=== PATIENT | female | born 1990 | race Caucasian/White ===

== ENCOUNTER 2016-11-23 07:22 | Emergency (ER) | payer OTHER ==
[2016-11-23 07:47] VITALS: BP 114/63
--- NOTE | 2016-11-23 08:49 | EDM.PDOC ---
[id number] Complaint: RIGHT FOOT INJURY Time Seen by Provider: 11/23/16 08:00 Source of Information: Reports: Patient History Limitations: Reports: No Limitations - History of Present Illness INITIAL COMMENTS - FREE TEXT/NARRATIVE: 26-year-old female buckled her right foot under her last evening and sustained a foot injury. This morning she has swelling and pain over the lateral aspect of the right foot. No other complaints. Onset: Other (Last evening) Location: Reports: Lower Extremity, Right Severity: Mild Associated Symptoms: Reports: No Other Symptoms right foot Pain Score (Numeric/FACES): 6 - Related Data Allergies Allergy/AdvReac Type Severity Reaction Status Date / Time No Known Allergies Allergy Verified 11/23/16 07:50 Home Meds: Home Meds NK [No Known Home Meds] 11/23/16 [History] Past Medical History - Past Health History Medical/Surgical History: Denies Medical/Surgical History Social & Family History - Tobacco Use Smoking Status *Q: Never Smoker Second Hand Smoke Exposure: No - Recreational Drug Use Recreational Drug Use: No Review of Systems - Review of Systems Review Of Systems: See Below Constitutional: Denies: Fever Respiratory: Denies: Shortness of Breath GI/Abdominal: Denies: Nausea, Vomiting Musculoskeletal: Denies: Neck Pain Skin: Denies: Bruising Neurological: Denies: Paresthesia ED EXAM, GENERAL - Physical Exam Exam: See Below Exam Limited By: No Limitations General Appearance: Alert, No Apparent Distress Respiratory/Chest: No Respiratory Distress Extremities: Other (Some swelling over the top and lateral aspect of the right foot, very tender to palpation but no crepitus or deformity) Course - Vital Signs Last Recorded V/S: Last Vital Signs Temp 95.4 F 11/23/16 07:45 Pulse 86 11/23/16 07:45 Resp 16 11/23/16 07:45 BP 114/63 11/23/16 07:45 Pulse Ox 98 11/23/16 07:45 - Orders/Labs/Meds Orders: Active Orders 24 hr Category Date Time Status Foot Comp Min 3V Rt [CR] Stat Exams 11/23/16 08:06 Taken - Re-Assessments/Exams Free Text/Narrative Re-Assessment/Exam: 11/23/16 08:47 An x-ray of the right foot was obtained which was negative. A three-inch Trey wrap was applied to the foot, she was supplied with crutches and should increase activity as tolerated area. Recheck next week if not improving satisfactorily. Departure - Departure Time of Disposition: 09:15 Disposition: Home, Self-Care 01 Condition: Good Clinical Impression: Sprain of foot, right Qualifiers: Encounter type: initial encounter Qualified Code(s): S93.601A - Unspecified sprain of right foot, initial encounter - Discharge Information Instructions: Foot Sprain Referrals: PCP,None [Primary Care Provider] - Forms: ED Department Discharge Care Plan Goals: Wrap foot, elevate, ice for the next couple of days and use crutches initially. Increase activity as tolerated and recheck in one week if not improving satisfactorily. Ibuprofen or naproxen should help. - My Orders Last 24 Hours: My Active Orders 11/23/16 08:06 Foot Comp Min 3V Rt [CR] Stat - Assessment/Plan Last 24 Hours: My Active Orders 11/23/16 08:06 Foot Comp Min 3V Rt [CR] Stat
--- NOTE | 2016-11-25 12:12 | CR ---
Three-view right foot. Indication: Is injury. Findings: Spurring at the navicular with remote avulsion fragment or degenerative fragment. Calcanea l heel spur.
== END 2016-11-23 09:16 | disposition home or self-care (01) ==
LOC: JP.ED 07:22
DX: S93.601A Unspecified sprain of right foot, initial encounter (principal); X58.XXXA Exposure to other specified factors, initial encounter
CPT/HCPCS: 73630-26-RT; 73630-RT; 99284